=== PATIENT | male | born 1995 | race African-American/Black ===

== ENCOUNTER 2023-09-05 11:47 | Emergency (ER) | payer SELFPAY ==
[2023-09-05 12:18] VITALS: BP 117/75; PULSE 71; RESP 18; TEMP 99.2; BMI 26.6
[2023-09-05] MEDS ORDERED: ACETAMINOPHEN 325 MG TABLET (FP) ONE (13:17)
[2023-09-05] MEDS: ACETAMINOPHEN 500 MG TABLET (FP) PO ONE (13:37)
[2023-09-05] MEDS ORDERED: KETOROLAC TROMETHAMINE 30 MG/1 ML VIAL ONE (14:32)
[2023-09-05] MEDS: KETOROLAC TROMETHAMINE 30 MG/1 ML VIAL IM ONE (14:36)
== END 2023-09-05 15:30 | disposition home or self-care (01) ==
LOC: JER 11:47
PROC: 3E0233Z Introduction of Anti-inflammatory into Muscle, Percutaneous Approach (ICD-10-PCS; principal; 2023-09-05)
DX: R51.9 Headache, unspecified (principal); R09.81 Nasal congestion; R50.9 Fever, unspecified; M79.10 Myalgia, unspecified site; U07.1 COVID-19; J06.9 Acute upper respiratory infection, unspecified
CPT/HCPCS: 0241U-QW; 99284-25